=== PATIENT | male | born 1970 | race Hispanic/Latino ===

== ENCOUNTER 2016-08-26 13:23 | Emergency (ER) | payer OTHER ==
[~2016-08-26] VITALS: Ht 180.3 cm; Wt 152.3 kg
[2016-08-26 13:29] VITALS: BP 154/105; PULSE 82; RESP 18; O2SAT 97
--- NOTE | 2016-08-26 14:01 | ED.REPORT ---
HPI-General Illness Date of Service Aug 26, 2016 ED Provider: Dr. Shelley Pt is a 46 y/o male w/ a hx of CHF, diabetes, HTN, hypothyroid, presenting to the ED c/o bilateral lower extremity pain onset about 1 wk. He states that he has been lightheaded and dizzy recently, especially when bending over to pick stuff up, as well as increased bilateral lower extremity swelling, cold intolerance. He denies fever, chills, CP, SOB. He hasn't been taking his medications regularly (significant for Metformin, Levothyroxine, Lisinopril, and Lasix) and has been maintaining a poor diet. PCP in [place] Nursing Notes Stated Complaint: PAIN IN BOTH LEGS Chief Complaint: Dysrhythmia/Cardiac Nursing Notes Reviewed: Yes Allergies: Coded Allergies: No Known Allergies (Unverified , 08/26/16) General Time Seen by MD: 14:06 Chief Complaint Other (Bilateral lower extremity pain) Hx Obtained From: Patient Arrived By: Walk-in Sudden in Onset?: No Onset Occurred: 3 days ago Symptom Duration: Since onset Location: : Leg left: Leg right Quality: Aching, Painful Severity: Current: Mild Severity: Maximum: Moderate Past Medical History Past Medical History Medication non-compliance Morbid obesity Diabetes Hypertension CHF Hypothyroid Past Surgical History None reported Smoking History Unknown if Ever Smoker Social History Other Social History: Homeless Ambulatory Status Independent Review of Systems Full Review of Systems Constitutional: Denies: Chills, Fever Respiratory: Denies: Shortness of breath Cardiovascular: Denies: Chest pain GI: Denies: Abdominal pain Musculoskeletal: Reports: Extremity pain, Extremity swelling Endocrine: Reports: Cold intolerance Neurologic: Reports: Dizziness, Lightheaded Complete sys rev & neg: except as marked. Physical Exam Vital Signs Vital Signs Date Time Temp Pulse Resp B/P Pulse Ox O2 Delivery O2 Flow Rate FiO2 08/26/16 14:17 73 13 157/89 97 Room Air 08/26/16 13:29 35.8 82 18 154/105 97 Room Air Initial VS: Reviewed, Vital signs normal Head / Eyes: Atraumatic, Normocephalic, PERRL ENT: Mucous membranes moist, Conjunctiva normal, No scleral icterus Neck: Supple, Full range of motion Respiratory: Breath sounds normal, Clear to auscultation, No respiratory distress Neurologic: Alert, Oriented, Nonfocal Psychiatric: Mood/affect normal, Behavior normal, Normal thought content General/Constitutional: Awake, Alert, No acute distress, Cooperative, Not toxic appearing Appearance / Presentation: Positive: Obese, morbidly Cardiovascular: Heart rate NL, Regular rhythm, Heart sounds NL, No gallop, No murmurs, No rubs, Cap refill not delayed, Peripheral circulation NL Lower Ext Edema: Positive: Bilateral 1+, Non-Pitting Lower Extremity / Pelvis / MS: Atraumatic, Full range of motion, No deformity, Neurologic intact, Vascular intact, No compartment syndrome Skin: Warm, Dry Acanthosis nigricans around neck Lichenification of both lower extremities Interpretation & Diagnostics Lab Results Interpretation Result Diagram: 08/26/16 1400 08/26/16 1400 Test 08/26/16 14:00 White Blood Count 6.6th/mm3 (3.8-10.1) Red Blood Count 5.41mil/mm3 (4.40-5.80) Hemoglobin 15.8g/dL (13.8-17.2) Hematocrit 47.5% (41.0-50.0) Mean Corpuscular Volume 87.8fL (81-100) Mean Corpuscular Hemoglobin 29.2pg (27.0-35.0) Mean Corpuscular Hemoglobin Concent 33.3% (32.0-37.0) Red Cell Distribution Width 13.6% (12.3-15.4) Platelet Count 242bil/L (150-400) Neutrophils (%) (Auto) 51.6% (40-74) Lymphocytes (%) (Auto) 33.8% (14-46) Monocytes (%) (Auto) 8.4% (4-12) Eosinophils (%) (Auto) 5.2% (0-5) Basophils (%) (Auto) 0.8% (0-3) Sodium Level 137mEq/L (134-144) Potassium Level 4.1mEq/L (3.5-5.2) Chloride Level 99mEq/L (97-108) Carbon Dioxide Level 25mmol/L (18-29) Blood Urea Nitrogen 12mg/dL (6-24) Creatinine 0.75mg/dL (0.76-1.27) Estimat Glomerular Filtration Rate 118mL/min (>59) Glucose Level 129mg/dL (60-99) Calcium Level 8.9mg/dL (8.5-10.1) Magnesium Level 2.0mg/dL (1.6-2.6) Total Bilirubin 0.6mg/dL (0.0-1.2) Aspartate Amino Transf (AST/SGOT) 22U/L (0-50) Alanine Aminotransferase (ALT/SGPT) 41U/L (0-44) Alkaline Phosphatase 78U/L (25-150) Troponin T < 0.010ug/L (0.0-0.011) Pro-B-Type Natriuretic Peptide 30.26pg/mL (0-121) Total Protein 7.8g/dL (6.4-8.4) Albumin 4.0g/dL (3.4-5.0) Thyroid Stimulating Hormone (TSH) 4.570uIU/mL (0.450-4.500) ECG Interpretation ECG Interpretation: Sinus rhythm rate 83 Poor R wave progression Time: 14:45 Interpreted by: ED physician Normal ECG Interpretation: No acute ischemic changes X-Ray Chest Interpretation Chest Xray Interpretation: IMPRESSION: Normal for age. Source of edema is not seen. Dictated by: Abrahan Johnson M.D. on 08/26/2016 at 14:38 Approved by: Abrahan Johnson M.D. on 08/26/2016 at 14:38 View: Portable, 1 view Interpretation / Wet Read by: Interpret - Radiologist Re-Eval/Medical Decision Time of Eval: 15:08 Re-Evaluation/Progress Note: Pt rechecked. Informed pt of plan for treatment. Pt understands and agrees with plan for treatment. F/U and RTER warnings given. All questions addressed. Will be dc/ed pending normal/baseline CMP. Counseled Regarding: Diagnosis, Lab results, Need for follow-up, When/why to return to ED Discharge & Departure Primary Impression: Noncompliance with medication regimen Additional Impressions: Hypertension Hypertension type: unspecified secondary hypertension Hypertension goal: unspecified goal Qualified Code: I15.9 - Secondary hypertension, unspecified Diabetes Diabetes mellitus type: other specified (including EWA) Diabetes mellitus complication status: with unspecified complications Qualified Code: E13.8 - Other specified diabetes mellitus with unspecified complications Bilateral lower extremity edema Disposition: Home Discharge Condition All VS Reviewed: Yes Condition: Stable Additional Instructions: I believe the symptoms you are describing are almost all, if not completely all due to not taking your medication. the good news is, there is nothing drastically wrong today. Your sugar isn't as bad as I was worried about but you still will benefit from glucophage 500mg am and with dinner. Your blood pressure is too high and you need to be back on lisinopril at 20mg daily. You will do better with daily lasix 20mg and potassium 10 meq for your chronic edema. You need to restart your thyroid medication 50mcg daily as well. I am giving you 1 month prescription for these medications that you should take as directed and make sure to NOT skip any doses. ALL of these medications and problems need regular care and you will also need repeat blood work to look at kidney function and potassium levels Follow-up with your primary care doctor as soon as you are able to get an appointment. YOU are important and taking care of yourself needs to be higher up on your priority list. I hope you get things turned around in the near future. Return to the emergency department if you experience chest pain, trouble breathing, profuse sweating, you develop a high fever, or for other concerning signs or symptoms. Good luck! Scribe Attestation Portions of this note were transcribed by Slava Maria. I, Dr. Shelley personally performed the history, physical exam and medical decision-making; I reviewed and confirmed the accuracy of the information in the transcribed note. Signed by Lori Johns, 08/26/16 - [id number] Sonia Shelley MD Aug 26, 2016 14:01 SLAVA MARIA Aug 26, 2016 14:17
[2016-08-26] MEDS ORDERED: Furosemide 10 mg/mL 4 mL Inj IVPUSH ONE (14:15)
[2016-08-26 14:17] VITALS: BP 157/89; PULSE 73; RESP 13; O2SAT 97
[2016-08-26 14:24] LABS: BASOPHILS % (AUTO) 0.8 % (0-3); EOSINOPHILS % (AUTO) 5.2 % (0-5); MONOCYTES % (AUTO) 8.4 % (4-12); Mean Corpuscular Hemoglobin 29.2 pg (27.0-35.0); Mean Corpuscular Volume 87.8 fL (81-100); NEUTROPHILS % (AUTO) 51.6 % (40-74); Platelet Count 242 bil/L (150-400)
--- NOTE | 2016-08-26 14:40 | DRSVH ---
PROCEDURE: X-RAY CHEST ONE VIEW, PORTABLE ([id number]) INDICATIONS: edema TECHNIQUE: One view of the chest was acquired. COMPARISON: None. FINDINGS: Surgical changes and devices: None. Lungs and pleura: No pleural effusions or pneumothorax. Lungs are clear. Mediastinum: Mediastinal contours appear normal. Heart size is normal. Bones and chest wall: No suspicious bony lesions. Overlying soft tissues appear unremarkable. IMPRESSION: Normal for age. Source of edema is not seen. Dictated by: Abrahan Johnson M.D. on 08/26/2016 at 14:38 Approved by: Abrahan Johnson M.D. on 08/26/2016 at 14:38
[2016-08-26 15:15] LABS: TROPONIN T < 0.010 ug/L (0.0-0.011)
[2016-08-26] MEDS ORDERED: POTA10CA42 PO (15:38)
[2016-08-26] MEDS ORDERED: FURO-129 PO (15:38)
[2016-08-26] MEDS ORDERED: LISI-567 PO (15:38)
[2016-08-26] MEDS ORDERED: OXYC1TAB24 PO (15:38)
[2016-08-26] MEDS ORDERED: LEVO50TA83 PO (15:38)
[2016-08-26] MEDS ORDERED: METF500T PO (15:38)
[2016-08-26 16:27] VITALS: BP 144/93; PULSE 91; O2SAT 97
== END 2016-08-26 16:44 | disposition home or self-care (01) ==
LOC: MERGE 13:23 → SED 13:23
DX: R60.0 Localized edema (principal); I10 Essential (primary) hypertension; E13.8 Other specified diabetes mellitus with unspecified complications; I50.9 Heart failure, unspecified; E66.01 Morbid (severe) obesity due to excess calories; Z91.120 Patient's intentional underdosing of medication regimen due to financial hardship; Z86.39 Personal history of other endocrine, nutritional and metabolic disease; Z59.0 Homelessness; Z68.42 Body mass index [BMI] 45.0-49.9, adult
CPT/HCPCS: 36415; 71010; 80053; 83036; 83735; 83880; 84443; 84484; 85025; 90791; 93005; 96374; 99285; J1940